=== PATIENT | male | born 1935 | race Caucasian/White ===

== ENCOUNTER 2021-07-09 02:41 | Emergency (ER) | payer MEDICARE, OTHER ==
[2021-07-09 02:50] VITALS: BP 154/69; PULSE 74
[2021-07-09] MEDS ORDERED: oxyCODONE 5 MG Tab PO ONE (03:42)
[2021-07-09] MEDS ORDERED: Acetaminophen 500 MG Tab PO ONE (03:42)
--- NOTE | 2021-07-09 03:50 | EDM.PDOC ---
ED HPI GENERAL MEDICAL PROBLEM - General Chief Complaint: Upper Extremity Injury/Pain Stated Complaint: "left wrist pain post fall" Time Seen by Provider: 07/09/21 03:13 Source of Information: Reports: Patient - History of Present Illness INITIAL COMMENTS - FREE TEXT/NARRATIVE: Cory is an 86 y/o male who comes to the ER early this morning with pain in his left hand and wrist. He reports falling a couple days ago and since then his left hand has become more painful and swollen. He reports that he has been trying to ice the left hand to help with the swelling. Tonight he could not find his pain meds at home and the pain was worse. He had not taken anything and rates the pain 9/10. No fevers. He is usually seen by the [facility] for primary care, but says he also uses [facility] sometimes. Left Wrist Pain Score (Numeric/FACES): 9 - Related Data Allergies Allergy/AdvReac Type Severity Reaction Status Date / Time No Known Allergies Allergy Verified 09/17/15 14:11 Home Meds: Home Meds Gabapentin [Neurontin] 300 mg PO TID 09/17/15 [History] hydroCHLOROthiazide [Hydrochlorothiazide] 50 mg PO ASDIRECTED 09/17/15 [History] Benzonatate [Tessalon Perle] 100 mg PO TID 11/26/15 [History] Omeprazole 20 mg PO DAILY 11/26/15 [History] Salsalate 750 mg PO TID 11/26/15 [History] hydrOXYzine HCl [Atarax] 25 mg PO BID 11/26/15 [History] Acetaminophen [Acetaminophen Extra Strength] 1,000 mg PO Q6H 10 Days tablet 07/09/21 [Rx] cephALEXin [Cephalexin] 500 mg PO QID #28 capsule 07/09/21 [Rx] oxyCODONE 5 mg PO Q6H PRN #15 tab 07/09/21 [Rx] Past Medical History HEENT History: Reports: Cataract, Impaired Vision Cardiovascular History: Reports: Syncope Respiratory History: Reports: Asthma, SOB - Past Surgical History HEENT Surgical History: Reports: Cataract Surgery, Tonsillectomy Social & Family History - Tobacco Use Tobacco Use Status *Q: Former Tobacco User Years of Tobacco use: 10 Used Tobacco, but Quit: Yes Month/Year Tobacco Last Used: 1981 - Caffeine Use Caffeine Use: Reports: Coffee - Recreational Drug Use Recreational Drug Use: No Review of Systems - Review of Systems Review Of Systems: See Below Constitutional: Reports: No Symptoms Eyes: Reports: No Symptoms Ears: Reports: No Symptoms Nose: Reports: No Symptoms Mouth/Throat: Reports: No Symptoms Respiratory: Reports: No Symptoms Cardiovascular: Reports: No Symptoms GI/Abdominal: Reports: No Symptoms, Other Musculoskeletal: Reports: Hand Pain (left hand and wrist) Skin: Reports: No Symptoms Neurological: Reports: No Symptoms Psychiatric: Reports: No Symptoms ED EXAM, GENERAL - Physical Exam Exam: See Below General Appearance: Alert, WD/WN, No Apparent Distress (Elderly male, he is holding his left hand in a position of comfort.) Ears: Normal External Exam, Hearing Grossly Normal Nose: Normal Inspection Throat/Mouth: Normal Inspection, Normal Lips, Normal Voice Head: Atraumatic, Normocephalic Respiratory/Chest: No Respiratory Distress Cardiovascular: Normal Peripheral Pulses, Regular Rate, Rhythm GI/Abdominal: Normal Bowel Sounds, Soft (Male) Exam: Deferred Rectal (Males) Exam: Deferred Extremities: Other (Note swelling to left hand region, more pronounced ovee the 2nd MCP joint on the left hand. Note mild redness and warmth over the region, ROM painful. Wrist mildly painful with exam, but ROM okay. 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 Xray done. 0345 Xray reviewed and radiology results noted. Oxycodone 5mg po and APAP 1gm po given for pain. Patient is poor historian when asked about health hx and cannot recall exactly what he has, but "it's a big long word". Will check baseline labs and then proceed with NSAIDs and steroids. 0430 WBC=12.2, Neuts=83.3%. CRP=9.0, BUN elevated. Will cover him with Cephalexin in case this is an infection, but favor more of an exacerbation of his arthritis so will also start him on steroid. Written instructions were given and he left the ER in stable condition. Last Recorded V/S: Last Vital Signs Temp 36.9 C 07/09/21 02:47 Pulse 74 07/09/21 02:47 Resp 16 01/07/22 02:47 BP 154/69 H 07/09/21 02:47 Pulse Ox 94 L 07/09/21 02:47 - Orders/Labs/Meds Orders: Active Orders 24 hr Category Date Time Status Hand Comp Min 3V Lt [CR] Stat Exams 07/09/21 02:44 Taken Wrist Comp Min 3V Lt [CR] Routine Exams 07/09/21 Taken Labs: Laboratory Tests 07/09/21 07/09/21 Range/Units 04:00 04:00 WBC 12.2 H (4.0-10.2) K/uL RBC 4.69 (4.33-5.41) M/uL Hgb 13.5 (13.1-16.8) g/dL Hct 40.8 (39.0-49.0) % MCV 87.0 (84.0-98.0) fL MCH 28.8 (28.2-33.3) pg MCHC 33.1 (31.7-36.0) g/dL RDW 13.9 (11.2-14.1) % Plt Count 243 (150-350) K/uL Neut % (Auto) 83.3 H (45.0-80.0) % Lymph % (Auto) 6.3 L (10.0-50.0) % Yell % (Auto) 9.1 (2.0-14.0) % Eos % (Auto) 1.0 (0.0-5.0) % Baso % (Auto) 0.3 (0.0-2.0) % Neut # (Auto) 10.12 H (1.40-7.00) K/uL Lymph # (Auto) 0.77 (0.50-3.50) K/uL Yell # (Auto) 1.11 H (0.00-1.00) K/uL Eos # (Auto) 0.12 (0.00-0.50) K/uL Baso # (Auto) 0.04 (0.00-0.20) K/uL Sodium 138 (136-145) mmol/L Potassium 4.4 (3.5-5.1) mmol/L Chloride 102 (98-107) mmol/L Carbon Dioxide 29.6 (21.0-32.0) mmol/L Anion Gap 6.4 L (7-15) meq/L BUN 25 H (7-18) mg/dL Creatinine 0.90 (0.51-1.17) mg/dL Est Cr Clr Drug Dosing 46.20 mL/min Estimated GFR (MDRD) > 60 mL/min Glucose 111 H (70-99) mg/dL Calcium 9.2 (8.5-10.1) mg/dL Magnesium 1.9 (1.8-2.4) mg/dL C-Reactive Protein 9.0 H (<=0.9) mg/dL Meds: Medications Discontinued Medications Generic Name Dose Route Start Last Admin Trade Name Freq PRN Reason Stop Dose Admin Acetaminophen 1,000 mg 07/09/21 03:42 07/09/21 03:47 Acetaminophen 500 Mg Tab PO 07/09/21 03:43 1,000 mg ONETIME ONE Administration Oxycodone HCl 5 mg 07/09/21 03:42 07/09/21 03:48 Oxycodone 5 Mg Tab PO 07/09/21 03:43 5 mg ONETIME ONE Administration - Radiology Interpretation Free Text/Narrative:: XR Left Hand/Wrist-no acute fractures notes, widespread degenerative changes noted. 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-see final report) Departure - Departure Time of Disposition: 04:22 Disposition: Home, Self-Care 01 Condition: Good Clinical Impression: Arthritis, Left hand pain - Discharge Information Prescriptions: Acetaminophen [Acetaminophen Extra Strength] 1,000 mg PO Q6H 10 Days tablet cephALEXin [Cephalexin] 500 mg PO QID #28 capsule oxyCODONE 5 mg PO Q6H PRN #15 tab PRN Reason: Pain (Severe 7-10) Instructions: Arthritis, [id number] Referrals: PCP,None [Primary Care Provider] - Forms: ED Department Discharge Additional Instructions: -Oxycodone 5mg oral every 6 hours as needed for severe pain #15 (Rx) -Acetaminophen 1000mg oral every 6 hours as needed (Use over the counter meds) -Medrol Dose Pack Take as directed on the package #21 (ER Rx) -Cephalexin 500mg 4x daily for 7 days #28 (Rx) -Apply the RACHANA wrap as needed for pain. Use warm, moist heat as needed to the hand. -If your symptoms are not better or you have other concerns, please contact your PCP at the [facility] as you may need a Rheumatology Consult -Return as needed to the ER Sepsis Event Note (ED) - Evaluation Sepsis Screening Result: No Definite Risk - Focused Exam Vital Signs: Vital Signs Temp Pulse Resp BP Pulse Ox 07/09/21 02:47 36.9 C 74 16 154/69 H 94 L - Problem List & Annotations (1) Arthritis SNOMED Code(s): 6863707 Code(s): M19.90 - UNSPECIFIED OSTEOARTHRITIS, UNSPECIFIED SITE Status: Acute Current Visit: Yes Annotation/Comment:: Xray negative for Fx. Radiolgy notes OA with RA. RACHANA applied and relief from oral pain meds. Will send home with Medrol Dose Pack and Oxycodone. Has Salsalate at home that he is supposed to take TID. Will also cover him with Cephalexin due to the erythema over the left 2nd MCP, doubt infection but will cover him. (2) Left hand pain SNOMED Code(s): 90132884 Code(s): M79.642 - PAIN IN LEFT HAND Status: Acute Current Visit: Yes - Problem List Review Problem List Initiated/Reviewed/Updated: Yes - My Orders Last 24 Hours: My Active Orders 07/09/21 Wrist Comp Min 3V Lt [CR] Routine 07/09/21 02:44 Hand Comp Min 3V Lt [CR] Stat - Assessment/Plan Last 24 Hours: My Active Orders 07/09/21 Wrist Comp Min 3V Lt [CR] Routine 07/09/21 02:44 Hand Comp Min 3V Lt [CR] Stat Plan: As above
[2021-07-09 04:19] LABS: ANION GAP 6.4 meq/L (7-15); CHLORIDE,CL 102 mmol/L (98-107); SODIUM,NA 138 mmol/L (136-145)
== END 2021-07-09 05:15 | disposition home or self-care (01) ==
LOC: LL.ED 02:41
DX: M19.032 Primary osteoarthritis, left wrist (principal); Z79.82 Long term (current) use of aspirin; Z87.891 Personal history of nicotine dependence
CPT/HCPCS: 36415; 73110-LT; 73130-LT; 80048; 83735; 85025; 86140; 99283; A9270-GY

== ENCOUNTER 2021-07-29 10:36 | Emergency (ER) | payer OTHER, MEDICARE ==
[2021-07-29 11:08] VITALS: BP 141/88; PULSE 97
[2021-07-29 12:04] LABS: ANION GAP 10.7 meq/L (7-15); CHLORIDE,CL 103 mmol/L (98-107); SODIUM,NA 139 mmol/L (136-145)
[2021-07-29 12:18] LABS: RESPIRATORY SYNCYTIAL VIR NAA NEGATIVE (NEGATIVE)
[2021-07-29 12:19] LABS: CORONAVIRUS COVID-19 NAA POSITIVE (NEGATIVE)
== END 2021-07-29 14:00 | disposition home or self-care (01) ==
LOC: LL.ED 10:36
DX: U07.1 COVID-19 (principal)
CPT/HCPCS: 0241U; 36415; 71045; 80053; 83605; 83735; 84100; 85025; 86140; 87040; 99283-25; 99284

== ENCOUNTER 2021-09-04 11:16 | Emergency (ER) | payer MEDICARE, OTHER ==
[2021-09-04 11:37] VITALS: PULSE 60
[2021-09-04 11:43] VITALS: BP 166/73
[2021-09-04] MEDS ORDERED: Lidocaine 1% 5 ML VIAL INJECT ONE (12:53)
[2021-09-04] MEDS ORDERED: Bacitracin/Neomycin/Polymyxin B Oint 0.9 GM U/D Packet TOP ONE (12:54)
== END 2021-09-04 13:49 | disposition home or self-care (01) ==
LOC: LL.ED 11:16
DX: S01.01XA Laceration without foreign body of scalp, initial encounter (principal); J45.909 Unspecified asthma, uncomplicated; W18.09XA Striking against other object with subsequent fall, initial encounter; Y92.009 Unspecified place in unspecified non-institutional (private) residence as the place of occurrence of the external cause
CPT/HCPCS: 12001; 70450; 99283; 99283-25

== ENCOUNTER 2021-11-13 16:40 | Emergency (ER) | payer MEDICARE, OTHER ==
[2021-11-13 17:51] VITALS: BP 129/61; PULSE 84
== END 2021-11-13 18:30 ==
LOC: LL.ED 16:40
DX: S01.01XA Laceration without foreign body of scalp, initial encounter (principal); L76.22 Postprocedural hemorrhage of skin and subcutaneous tissue following other procedure; Z79.82 Long term (current) use of aspirin; W18.09XA Striking against other object with subsequent fall, initial encounter
CPT/HCPCS: 12001; 70450; 73562-LT; 99284; 99284-25

== ENCOUNTER 2021-11-23 22:54 | Emergency (ER) | payer MEDICARE, OTHER ==
[2021-11-23 23:20] VITALS: BP 120/49; PULSE 90
[2021-11-23 23:38] LABS: CHLORIDE,CL 98 mmol/L (98-107); SODIUM,NA 135 mmol/L (136-145)
[2021-11-23 23:39] LABS: ANION GAP 12.7 meq/L (7-15)
[2021-11-23] MEDS ORDERED: Sodium Chloride 0.9% 1,000 ML IV ONE (23:43)
== END 2021-11-24 01:20 ==
LOC: LL.ED 22:54
DX: R44.1 Visual hallucinations (principal)
CPT/HCPCS: 36415; 70450; 80053; 81001; 82140; 83735; 85025; 99285-25; J7030

== ENCOUNTER 2022-01-19 13:48 | Emergency (ER) | payer MEDICARE, OTHER ==
[2022-01-19] MEDS ORDERED: Sodium Chloride 0.9% 1,000 ML IV ONE (14:00)
[2022-01-19] MEDS ORDERED: Sodium Chloride 0.9% 10 ML Syringe FLUSH PRN (14:34)
[2022-01-19 14:56] LABS: ANION GAP 8.2 meq/L (7-15)
[2022-01-19] MEDS ORDERED: Tenecteplase 50 MG Kit ONE (14:57)
== END 2022-01-19 15:45 ==
LOC: LL.ED 13:48
DX: R47.01 Aphasia (principal); Z79.82 Long term (current) use of aspirin
CPT/HCPCS: 36415; 70450; 80053; 82550; 83735; 83880; 84146; 84484; 85025; 85379; 85610; 93005; 96360; 99285-25; J7030

== ENCOUNTER 2022-10-06 11:15 | Emergency (ER) | payer OTHER, MEDICARE ==
[2022-10-06] MEDS ORDERED: Sodium Chloride 0.9% 10 ML Syringe FLUSH PRN (11:46)
[2022-10-06 12:19] LABS: ANION GAP 8.3 meq/L (7-15)
[2022-10-06 12:27] VITALS: BP 134/66; PULSE 65
== END 2022-10-06 13:15 | disposition home or self-care (01) ==
LOC: LL.ED 11:15
DX: R05.9 Cough, unspecified (principal); R06.02 Shortness of breath; J45.909 Unspecified asthma, uncomplicated; M19.90 Unspecified osteoarthritis, unspecified site; Z87.891 Personal history of nicotine dependence; Z88.0 Allergy status to penicillin; Z88.1 Allergy status to other antibiotic agents; Z79.82 Long term (current) use of aspirin; Z79.899 Other long term (current) drug therapy
CPT/HCPCS: 36415; 71046; 80053; 83735; 84484; 85025; 93005; 93010; 99284

== ENCOUNTER 2023-07-09 08:37 | Emergency (ER) | payer MEDICARE, OTHER ==
[2023-07-09] MEDS ORDERED: Sodium Chloride 0.9% 10 ML Syringe FLUSH PRN (11:43)
[2023-07-09 12:22] LABS: BASOPHILS ABSOLUTE AUTO 0.03 K/uL (0.00-0.20); BASOPHILS PERCENT AUTO 0.3 % (0.0-2.0); EOSINOPHILS ABSOLUTE AUTO 0.39 K/uL (0.00-0.50); EOSINOPHILS PERCENT AUTO 3.7 % (0.0-5.0); HEMATOCRIT 35.6 % (39.0-49.0); HEMOGLOBIN 11.6 g/dL (13.1-16.8); LYMPHOCYTES ABSOLUTE AUTO 1.11 K/uL (0.50-3.50); LYMPHOCYTES PERCENT AUTO 10.7 % (10.0-50.0); MEAN CORPUSCULAR HEMOGLOBIN 29.1 pg (28.2-33.3); MEAN CORPUSCULAR HGB CONC 32.6 g/dL (31.7-36.0); MEAN CORPUSCULAR VOLUME 89.4 fL (84.0-98.0); MONOCYTES PERCENT AUTO 9.6 % (2.0-14.0); NEUTROPHILS ABSOLUTE AUTO 7.89 K/uL (1.40-7.00); NEUTROPHILS PERCENT AUTO 75.7 % (45.0-80.0); PLATELET COUNT,PLT 298 K/uL (150-350); RED BLOOD CELL COUNT 3.98 M/uL (4.33-5.41); RED CELL DISTRIBUTION WIDTH 13.6 % (11.2-14.1); WHITE BLOOD CELL COUNT,WBC 10.4 K/uL (4.0-10.2)
[2023-07-09 12:37] LABS: INR 1.1 (0.9-1.1); PROTHROMBIN TIME 10.6 SEC (9.0-11.1)
[2023-07-09 12:48] LABS: ALBUMIN 3.2 g/dL (3.4-5.0); BILIRUBIN TOTAL 0.7 mg/dL (0.2-1.0); CALCIUM 8.7 mg/dL (8.5-10.1); CREATININE 1.04 mg/dL (0.51-1.17); EST CRCL DRUG DOSING (CG) 41.58 mL/min
[2023-07-09 12:51] LABS: CORONAVIRUS COVID-19 NAA NEGATIVE (NEGATIVE); INFLUENZA A NAA NEGATIVE (NEGATIVE); INFLUENZA B NAA NEGATIVE (NEGATIVE); RESPIRATORY SYNCYTIAL VIR NAA NEGATIVE (NEGATIVE)
[2023-07-09 18:28] VITALS: BP 124/79; PULSE 82
[2023-07-09] MEDS ORDERED: Lactated Ringers 1,000 ML IV SCH (19:00)
== END 2023-07-09 19:10 ==
LOC: LL.ED 08:37
DX: S72.001A Fracture of unspecified part of neck of right femur, initial encounter for closed fracture (principal); I10 Essential (primary) hypertension; J45.909 Unspecified asthma, uncomplicated; M19.90 Unspecified osteoarthritis, unspecified site; Z79.82 Long term (current) use of aspirin; Z20.822 Contact with and (suspected) exposure to COVID-19; Z87.891 Personal history of nicotine dependence; Z88.0 Allergy status to penicillin; Z88.1 Allergy status to other antibiotic agents; W18.30XA Fall on same level, unspecified, initial encounter; Z79.899 Other long term (current) drug therapy
CPT/HCPCS: 0241U; 36415; 73110-RT; 73700-RT; 80053; 83880; 85025; 85610; 99285